=== PATIENT | male | born 1945 | race Caucasian/White ===

== ENCOUNTER 2019-10-23 08:04 | Day surgery (SDC) | payer MEDICARE ==
[2019-10-23] MEDS ORDERED: PROPOFOL 10 MG/ML VIAL IV ONE (08:05)
[2019-10-23] MEDS ORDERED: LIDOCAINE 2% MDV (20MG/ML) 20ML VIAL IV ONE (08:05)
--- NOTE | 2019-10-24 09:11 | Operative Note ---
OPERATION: COLONOSCOPY to the cecum with cold biopsy forceps polypectomy x2. INDICATION: Episodic morning diarrhea with 3 loose stools in the morning. At other times, he has no stools in a day. He also has a history of adenomatous polyps in the past. He returns at this time for evaluation and surveillance. ANESTHESIA: Intravenous sedation was administered by the department of anesthesiology and included Diprivan titrated to effect. PROCEDURE: Following informed consent from this alert individual including a discussion of the risks and benefits of the procedure and an opportunity for the patient to ask questions, the patient was in the left lateral decubitus position. A digital rectal examination was performed. No abnormalities were noted. Following this, the Olympus [id number] video colonoscope was inserted into the rectum without resistance. The rectal mucosa had a normal appearance with normal folds and distensibility. The colonoscope was advanced up through the bowel to the level of the cecum without much difficulty. Throughout the bowel the mucosa appeared normal, the folds were normal, and the bowel was fairly well distensible. The cecum was defined by noting the appendiceal orifice and ileocecal valve. From the base of the cecum, the colonoscope was then slowly withdrawn. The colon preparation overall was good. No changes were noted until the sigmoid colon was reached. Within the sigmoid, there were 2 diminutive polyps measuring 3 mm in size. Each was removed with cold biopsy forceps. Retroflexion in the rectum revealed small internal hemorrhoids. No other changes were appreciated throughout. Random biopsies were taken from the right and left colon upon withdrawal to evaluate for the remote possibility of microscopic colitis. IMPRESSION: 1. Two diminutive sigmoid polyps removed with biopsy forceps. 2. Small internal hemorrhoids. 3. Random biopsies taken from throughout the bowel. RECOMMENDATIONS: Further recommendations will be forthcoming pending results of pathology obtained today. Followup will also be with Dr. Allan Jeong. As always, thank you for allowing me to participate in the care of your patient. ATIYA
== END 2019-10-23 09:47 | disposition home or self-care (01) ==
LOC: HOP 08:04
PROVIDERS: ATTEND Internal Medicine Gastroenterology
DX: Z12.11 Encounter for screening for malignant neoplasm of colon (principal); D12.5 Benign neoplasm of sigmoid colon; I10 Essential (primary) hypertension; E78.00 Pure hypercholesterolemia, unspecified; J44.9 Chronic obstructive pulmonary disease, unspecified